=== PATIENT | female | born 1935 | race Caucasian/White ===

== ENCOUNTER 2018-01-05 01:29 | Outpatient (CLI) | payer MEDICARE ==
[~2018-01-05 01:29] MED LIST: ZOLP10TA5 PO
== END 2018-01-05 23:59 | disposition home or self-care (01) ==
LOC: DIABETIC 01:29
PROVIDERS: ATTEND Physician Assistant
DX: Z71.3 Dietary counseling and surveillance (principal); E58 Dietary calcium deficiency; M81.0 Age-related osteoporosis without current pathological fracture; L21.9 Seborrheic dermatitis, unspecified; M19.90 Unspecified osteoarthritis, unspecified site; E78.5 Hyperlipidemia, unspecified
CPT/HCPCS: 97802

== ENCOUNTER 2018-05-19 18:54 | Emergency (ER) | payer OTHER ==
[~2018-05-19] VITALS: Ht 170.2 cm; Wt 57.5 kg
[2018-05-19 19:13] VITALS: BP 147/70
== END 2018-05-19 20:39 | disposition left against medical advice (07) ==
LOC: ER 18:55
DX: M79.645 Pain in left finger(s) (principal); Z53.21 Procedure and treatment not carried out due to patient leaving prior to being seen by health care provider; Z88.5 Allergy status to narcotic agent; Z88.8 Allergy status to other drugs, medicaments and biological substances; Z79.899 Other long term (current) drug therapy

== ENCOUNTER 2022-12-11 23:20 | Emergency (ER) | payer MEDICARE, OTHER ==
[~2022-12-11] VITALS: Ht 170.2 cm; Wt 63.6 kg
[2022-12-12 00:31] LABS: BASOPHILS # (AUTO) 0.1 X10'3 (0-0.2); BASOPHILS % (AUTO) 1.2 % (0-1); EOSINOPHILS # (AUTO) 0.1 X10'3 (0-0.9); EOSINOPHILS % (AUTO) 1.6 % (0-6); HEMATOCRIT 35.9 % (35.0-45.0); HEMOGLOBIN 12.1 g/dl (12.0-16.0); LYMPHOCYTES # (AUTO) 1.2 X10'3 (1.1-4.8); LYMPHOCYTES % (AUTO) 21.3 % (21-51); MEAN CORPUSCULAR HEMOGLOBIN 31.5 PG (27.0-31.0); MEAN CORPUSCULAR HGB CONC 33.8 g/dL (33.0-36.5); MEAN CORPUSCULAR VOLUME 93.4 FL (78-98); MEAN PLATELET VOLUME 7.9 FL (7.4-10.4); MONOCYTES # (AUTO) 0.7 X10'3 (0-0.9); NEUTROPHILS # (AUTO) 3.5 X10'3 (1.8-7.7); NEUTROPHILS % (AUTO) 63.9 % (42-75); PLATELET COUNT 282 X10'3 (140-440); RED BLOOD COUNT 3.84 X10'6 (4.20-5.60); RED CELL DISTRIBUTION WIDTH 14.3 % (11.5-14.5); WHITE BLOOD COUNT 5.5 X10'3 (4.5-11.0)
[2022-12-12 00:43] LABS: ALANINE AMINOTRANSFERASE 21 U/L (12-78); ALBUMIN 3.3 G/DL (3.4-5.0); ALBUMIN/GLOBULIN RATIO 0.9 (1.1-1.5); ALKALINE PHOSPHATASE 136 IU/L (46-116); ANION GAP 7 (8-16); ASPARTATE AMINO TRANSFERASE 37 U/L (10-37); BILIRUBIN,TOTAL 0.4 MG/DL (0.1-1.0); BLOOD UREA NITROGEN 8 MG/DL (7-18); BUN/CREATININE RATIO 12.1 (10.0-20.0); CALCIUM 9.2 MG/DL (8.5-10.1); CHLORIDE 104 MMOL/L (99-107); CREATININE 0.66 MG/DL (0.40-0.90); GLUCOSE 109 MG/DL (70-104); POTASSIUM 3.4 MMOL/L (3.5-5.1); SODIUM 141 MMOL/L (135-145); TOTAL CARBON DIOXIDE 30.5 MMOL/L (24-32); eCRCL 61 ML/MIN; eGFR 85 ML/MIN
[2022-12-12 00:45] VITALS: TEMP 98.1
[2022-12-12 01:13] LABS: BILIRUBIN,URINE NEGATIVE (Neg); CLARITY,URINE CLEAR (Clear); COLOR,URINE YELLOW (Yellow); GLUCOSE, URINE NEGATIVE (Neg); KETONES,URINE 15 mg/dl (Neg); LEUKOCYTE ESTERASE ,URINE SMALL (Neg); NITRITES, URINE NEGATIVE (Neg); OCCULT BLOOD,URINE NEGATIVE (Neg); PROTEIN,URINE NEGATIVE (Neg); UROBILINOGEN,URINE 0.2 E.U/dL (0.2-1.0)
[2022-12-12 01:19] LABS: UA COLLECTION TYPE NON-SPECIFIED
[2022-12-12 01:20] LABS: MUCUS STRANDS MODERATE /LPF (Neg); SQUAMOUS EPITHELIAL CELL,UR MODERATE /LPF (FEW)
[2022-12-12 01:21] LABS: BACTERIA,URINE 1+ /HPF (Neg); RBC,URINE 0-2 /HPF (0-2)
[2022-12-12] MEDS ORDERED: CEPH-585 PO (01:30)
[2022-12-12 01:42] VITALS: BP 145/74; PULSE 72; RESP 14; O2SAT 97
== END 2022-12-12 01:47 | disposition home or self-care (01) ==
LOC: ER 23:20
DX: I83.893 Varicose veins of bilateral lower extremities with other complications (principal); Z88.6 Allergy status to analgesic agent; Z88.5 Allergy status to narcotic agent; Z79.899 Other long term (current) drug therapy
CPT/HCPCS: 36415; 80053; 81001; 85025; 86885; 86900; 86901; 87088; 93005; 99284

== ENCOUNTER 2022-12-17 14:08 | Emergency (ER) | payer MEDICARE, OTHER ==
[~2022-12-17] VITALS: Ht 170.2 cm; Wt 63.6 kg
[~2022-12-17 14:08] MED LIST changes: +CEPH-585 PO
[2022-12-17 14:51] VITALS: BP 108/64; PULSE 83; RESP 19; TEMP 97.6; O2SAT 97
--- NOTE | 2022-12-17 15:30 | NUR ---
I have reviewed and agree with all interventions, assessments performed and documented by SUNIL Langston.
[2022-12-17] MEDS ORDERED: CYCL-1 PO (15:35)
[2022-12-17] MEDS ORDERED: PRED20TA PO (15:35)
== END 2022-12-17 15:54 | disposition home or self-care (01) ==
LOC: ER 14:09
DX: M54.16 Radiculopathy, lumbar region (principal)
CPT/HCPCS: 73502; 99284

== ENCOUNTER 2023-01-17 04:16 | Emergency (ER) | payer MEDICARE ==
[~2023-01-17] VITALS: Ht 170.2 cm; Wt 61.3 kg
[~2023-01-17 04:16] MED LIST changes: +CYCL-1 PO; +PRED20TA PO
[2023-01-17 04:49] LABS: BILIRUBIN,URINE NEGATIVE (Neg); CLARITY,URINE CLOUDY (Clear); COLOR,URINE YELLOW (Yellow); GLUCOSE, URINE NEGATIVE (Neg); KETONES,URINE NEGATIVE (Neg); LEUKOCYTE ESTERASE ,URINE SMALL (Neg); NITRITES, URINE NEGATIVE (Neg); OCCULT BLOOD,URINE MODERATE (Neg); PH,URINE 7.5 (4.8-8.0); PROTEIN,URINE NEGATIVE (Neg); UROBILINOGEN,URINE 0.2 E.U/dL (0.2-1.0)
[2023-01-17 04:53] LABS: UA COLLECTION TYPE CLN CATCH MIDSTREAM
[2023-01-17 04:54] LABS: SQUAMOUS EPITHELIAL CELL,UR MODERATE /LPF (FEW)
[2023-01-17 04:56] LABS: BACTERIA,URINE 3+ /HPF (Neg)
[2023-01-17 04:58] LABS: AMORPHOUS PHOSPHATES 3+
[2023-01-17 05:02] LABS: BASOPHILS # (AUTO) 0.1 X10'3 (0-0.2); BASOPHILS % (AUTO) 1.1 % (0-1); EOSINOPHILS # (AUTO) 0.2 X10'3 (0-0.9); EOSINOPHILS % (AUTO) 2.9 % (0-6); HEMATOCRIT 39.6 % (35.0-45.0); HEMOGLOBIN 13.1 g/dl (12.0-16.0); LYMPHOCYTES # (AUTO) 1.9 X10'3 (1.1-4.8); LYMPHOCYTES % (AUTO) 32.7 % (21-51); MEAN CORPUSCULAR HEMOGLOBIN 30.6 PG (27.0-31.0); MEAN CORPUSCULAR VOLUME 92.7 FL (78-98); MONOCYTES # (AUTO) 0.8 X10'3 (0-0.9); NEUTROPHILS # (AUTO) 2.8 X10'3 (1.8-7.7); NEUTROPHILS % (AUTO) 49.3 % (42-75); PLATELET COUNT 332 X10'3 (140-440); RED BLOOD COUNT 4.28 X10'6 (4.20-5.60); RED CELL DISTRIBUTION WIDTH 14.2 % (11.5-14.5); WHITE BLOOD COUNT 5.7 X10'3 (4.5-11.0)
[2023-01-17 05:04] LABS: ALANINE AMINOTRANSFERASE 16 U/L (12-78); ALBUMIN 3.9 G/DL (3.4-5.0); ALBUMIN/GLOBULIN RATIO 1.1 (1.1-1.5); ALKALINE PHOSPHATASE 176 IU/L (46-116); ANION GAP 6 (8-16); ASPARTATE AMINO TRANSFERASE 22 U/L (10-37); BILIRUBIN,TOTAL 0.5 MG/DL (0.1-1.0); BLOOD UREA NITROGEN 10 MG/DL (7-18); BUN/CREATININE RATIO 14.9 (10.0-20.0); CALCIUM 9.3 MG/DL (8.5-10.1); CHLORIDE 106 MMOL/L (99-107); CREATININE 0.67 MG/DL (0.40-0.90); GLUCOSE 99 MG/DL (70-104); LIPASE 33 U/L (16-77); POTASSIUM 3.8 MMOL/L (3.5-5.1); SODIUM 141 MMOL/L (135-145); TOTAL CARBON DIOXIDE 29.4 MMOL/L (24-32); TOTAL PROTEIN 7.6 G/DL (6.4-8.2); eCRCL 59 ML/MIN; eGFR 84 ML/MIN
--- NOTE | 2023-01-17 06:43 | NUR ---
[id number] recieved reort from [facility] assuming care of pt
--- NOTE | 2023-01-17 08:55 | NUR ---
pt still in toilet. Checked on her. She reports she is fine and doesn't need help at this time.
--- NOTE | 2023-01-17 09:05 | NUR ---
0840 pt ambulated to BR using her FWW slow steady gait DC orders arrived pt aware. 0900 pt remains in BR attempting to have BM DC pw ready family member at bedside aware pt dc when out of BR
[2023-01-17 09:21] VITALS: BP 131/75; PULSE 69; RESP 16; TEMP 97.9; O2SAT 96
== END 2023-01-17 09:18 | disposition home or self-care (01) ==
LOC: ER 04:17
DX: K59.00 Constipation, unspecified (principal); K92.1 Melena; Z88.6 Allergy status to analgesic agent; Z88.5 Allergy status to narcotic agent
CPT/HCPCS: 36415; 74176; 80053; 81001; 83690; 84145; 85025; 87088; 99285; J3490

== ENCOUNTER 2023-01-18 07:48 | Emergency (ER) | payer MEDICARE ==
[~2023-01-18] VITALS: Ht 170.2 cm; Wt 61.0 kg
[~2023-01-18 07:48] MED LIST changes: -PRED20TA PO
[2023-01-18 07:55] VITALS: TEMP 98.2
[2023-01-18 09:40] VITALS: BP 148/73; PULSE 70; RESP 16; O2SAT 98
== END 2023-01-18 09:43 | disposition home or self-care (01) ==
LOC: ER 07:48
DX: K62.3 Rectal prolapse (principal); K59.00 Constipation, unspecified; Z88.6 Allergy status to analgesic agent; Z79.899 Other long term (current) drug therapy; Z88.5 Allergy status to narcotic agent
CPT/HCPCS: 99281

== ENCOUNTER 2023-01-22 07:32 | Emergency (ER) | payer MEDICARE ==
[~2023-01-22] VITALS: Ht 170.2 cm; Wt 61.6 kg
[2023-01-22 08:08] VITALS: BP 133/71; PULSE 69; RESP 16; TEMP 98.6; O2SAT 96
[2023-01-22] MEDS ORDERED: naproxen 500mg tablet PO ONE (10:25)
--- NOTE | 2023-01-22 10:30 | NUR ---
Patient refused to be on the wheelchair upon discharge. She preferred to walk with her walker. I asked an EMT student to assist the patient upon the discharge. Naproxen given for pain
== END 2023-01-22 10:42 | disposition home or self-care (01) ==
LOC: ER 07:33
DX: K62.3 Rectal prolapse (principal); Z88.6 Allergy status to analgesic agent
CPT/HCPCS: 99284

== ENCOUNTER 2023-01-29 23:07 | Emergency (ER) | payer MEDICARE ==
[~2023-01-29] VITALS: Ht 170.2 cm; Wt 59.6 kg
[2023-01-30] MEDS ORDERED: gabapentin 400mg capsule PO ONE (01:40)
[2023-01-30 01:57] LABS: BASOPHILS # (AUTO) 0.1 X10'3 (0-0.2); EOSINOPHILS # (AUTO) 0.1 X10'3 (0-0.9); HEMATOCRIT 36.1 % (35.0-45.0); HEMOGLOBIN 11.9 g/dl (12.0-16.0); LYMPHOCYTES # (AUTO) 1.6 X10'3 (1.1-4.8); LYMPHOCYTES % (AUTO) 25.5 % (21-51); MEAN CORPUSCULAR HEMOGLOBIN 30.7 PG (27.0-31.0); MEAN CORPUSCULAR VOLUME 93.1 FL (78-98); MEAN PLATELET VOLUME 7.6 FL (7.4-10.4); MONOCYTES # (AUTO) 0.9 X10'3 (0-0.9); MONOCYTES % (AUTO) 13.7 % (2-12); NEUTROPHILS # (AUTO) 3.7 X10'3 (1.8-7.7); NEUTROPHILS % (AUTO) 57.8 % (42-75); PLATELET COUNT 292 X10'3 (140-440); RED BLOOD COUNT 3.88 X10'6 (4.20-5.60); RED CELL DISTRIBUTION WIDTH 14.4 % (11.5-14.5); WHITE BLOOD COUNT 6.4 X10'3 (4.5-11.0)
[2023-01-30 02:26] LABS: ALANINE AMINOTRANSFERASE 17 U/L (12-78); ALBUMIN 3.3 G/DL (3.4-5.0); ALBUMIN/GLOBULIN RATIO 0.9 (1.1-1.5); ALKALINE PHOSPHATASE 122 IU/L (46-116); ANION GAP 6 (8-16); ASPARTATE AMINO TRANSFERASE 19 U/L (10-37); BILIRUBIN,TOTAL 0.4 MG/DL (0.1-1.0); BLOOD UREA NITROGEN 16 MG/DL (7-18); BUN/CREATININE RATIO 21.6 (10.0-20.0); CALCIUM 9.3 MG/DL (8.5-10.1); CHLORIDE 106 MMOL/L (99-107); CREATININE 0.74 MG/DL (0.40-0.90); GLUCOSE 113 MG/DL (70-104); POTASSIUM 3.7 MMOL/L (3.5-5.1); SODIUM 142 MMOL/L (135-145); TOTAL CARBON DIOXIDE 29.6 MMOL/L (24-32); TOTAL PROTEIN 6.9 G/DL (6.4-8.2); eCRCL 52 ML/MIN; eGFR 75 ML/MIN
[2023-01-30 02:27] LABS: C-REACTIVE PROTEIN < 0.05 MG/DL (0.0-0.5)
[2023-01-30] MEDS ORDERED: CEPH-585 PO (03:51)
[2023-01-30 04:07] VITALS: BP 148/67; PULSE 65; RESP 16; TEMP 98; O2SAT 99
== END 2023-01-30 04:09 | disposition home or self-care (01) ==
LOC: ER 23:08
DX: T81.40XD Infection following a procedure, unspecified, subsequent encounter (principal); G89.18 Other acute postprocedural pain; M79.605 Pain in left leg; Z88.6 Allergy status to analgesic agent; Z88.8 Allergy status to other drugs, medicaments and biological substances; Z79.2 Long term (current) use of antibiotics; Z79.899 Other long term (current) drug therapy
CPT/HCPCS: 36415; 73590; 80053; 85025; 85651; 86140; 93971; 99284

== ENCOUNTER → 2023-02-05 | Emergency (ER) | payer MEDICARE ==
[~2023-02-05] VITALS: Ht 170.2 cm; Wt 62.1 kg
[~2023-02-05] MED LIST changes: +GLYC-18 RC; +MAG1CAPS5 PO
[2023-02-05 14:36] VITALS: BP 146/69; PULSE 65; RESP 20; TEMP 97.5; O2SAT 97
== END | disposition home or self-care (01) ==
LOC: ER 14:24
DX: K59.00 Constipation, unspecified (principal); Z88.1 Allergy status to other antibiotic agents; Z88.8 Allergy status to other drugs, medicaments and biological substances
CPT/HCPCS: 99282

== ENCOUNTER 2024-11-09 02:42 | Emergency (ER) | payer MEDICARE, OTHER ==
[~2024-11-09] VITALS: Ht 170.2 cm; Wt 49.0 kg
[~2024-11-09 02:42] MED LIST changes: -CEPH-585 PO; +GLYC-147 RC; -GLYC-18 RC; +LACT10SO67 PO; +LUBI8CAP5 PO; +ONDA-243 PO
[2024-11-09 02:49] VITALS: BP 142/80; PULSE 83; O2SAT 95
--- NOTE | 2024-11-09 02:53 | Physician Documentation ---
History of Present Illness ~ General Stated Complaint: PAIN Time Seen by MD: 02:50 Primary Medical Doctor: Dr Stephens History of Present Illness Initial Comments Patient presents to the emergency room after pulling the fire alarm at her living facility because she wanted to get her pain medication early. She is giving her pain medication as EMS arrived to bring her to the emergency room. She has no medical complaints. Medication Reconciliation Allergies: Coded Allergies: No Known Allergies (Unverified , 08/24/24) Scheduled Cyclobenzaprine* (Cyclobenzaprine*), 1 TAB PO TID Lubiprostone (Lubiprostone), 8 MCG PO BID, (Reported) Mag Citrate/Potassium Citrate (K-mg Citrate 99-70 mg Capsule), 1 BOTTLE PO ONCE Scheduled PRN Glycerin (Glycerin), 1 EACH RC PRN PRN for constipation Lactulose (Constulose), 15 ML PO DAILY PRN for CONSTIPATION ONDANSETRON ODT 4mg tablet (Ondansetron Odt), 1 TAB PO Q6H PRN PRN for nausea/vomiting Zolpidem Tartrate* (Ambien*), 5 MG PO HSP PRN for sleep, (Reported) Past Medical History Past Medical History: Constipation, Osteoporosis Past Surgical History: other Other Past Surgical History: Vascular surgery Patient History: Patient reports no known family medical history. Alcohol Use: None Drug Use: none Lives with: Family Lives In: Home Occupation: retired Review of Systems ROS All review of systems negative except as per HPI Physical Exam Physical Exam Physical Exam General: Patient is awake, alert, in no acute distress. Comfortable appearing Head: Normocephalic and atraumatic. Eyes: Conjunctival normal. EOMI. PERRL. ENT: Mucous membranes moist. Neck: Supple, trachea is midline. Chest: Clear to auscultation bilaterally without rales, rhonchi, or wheezes. There is no accessory muscle use or retractions. Cardiac: RRR without murmurs, gallops, or rubs. Abd: Soft, nondistended, nontender, with normoactive bowel sounds. No guarding, rebound, or rigidity. Neuro: Cranial nerves II-XII grossly intact. No focal neuro deficits. Medical Decision Making Findings Patient presents to the emergency room as she is unhappy with her living condi tions. I explained to her this is not a medical emergency. She needs to work with her living facility friends and family that has social media sr strategy manager to discuss her living situation. Departure Disposition: HOME / SELF CARE / HOMELESS Impression: Primary Impression: General medical exam Condition: Stable Discharge Instructions: General Discharge Instructions Additional Instructions: You need to speak with your friends family and living facility regarding your displeasure and work it out with them regarding your residents. This is not a medical emergency Referrals: NO PRIMARY CARE PROVIDER (PCP) Signature Scribe Signature: No scribe Attestation: The note accurately reflects work and decisions made by me.Tim Schulz MD 11/09/24 02:53 TIM SCHULZ MD Nov 09, 2024 02:53
[2024-11-09 03:27] VITALS: RESP 14; TEMP 98.2
== END 2024-11-09 03:30 ==
LOC: ER 02:42
DX: Z00.00 Encounter for general adult medical examination without abnormal findings (principal)
CPT/HCPCS: 99283; J7030

== ENCOUNTER 2024-11-11 01:49 | Emergency (ER) | payer MEDICARE ==
[~2024-11-11] VITALS: Ht 170.2 cm; Wt 67.0 kg
--- NOTE | 2024-11-11 01:58 | Physician Documentation ---
History of Present Illness General Stated Complaint: AGITATION Time Seen by MD: 01:57 Primary Medical Doctor: Dr Stephens History of Present Illness Initial Comments The patient is an 89-year-old female brought in by EMS from [facility]. Evidently the patient was in [facility] for a right shoulder injury. The patient states she does not want to be at [facility] and requested to be transferred to our facility. The patient does not have any new complaints. She states her shoulder is currently not bothering her. But she is refusing to go back to [facility]. Medication Reconciliation Allergies: Coded Allergies: No Known Allergies (Unverified , 08/24/24) Scheduled Cyclobenzaprine* (Cyclobenzaprine*), 1 TAB PO TID Lubiprostone (Lubiprostone), 8 MCG PO BID, (Reported) Mag Citrate/Potassium Citrate (K-mg Citrate 99-70 mg Capsule), 1 BOTTLE PO ONCE Scheduled PRN Glycerin (Glycerin), 1 EACH RC PRN PRN for constipation Lactulose (Constulose), 15 ML PO DAILY PRN for CONSTIPATION ONDANSETRON ODT 4mg tablet (Ondansetron Odt), 1 TAB PO Q6H PRN PRN for nausea/vomiting Zolpidem Tartrate* (Ambien*), 5 MG PO HSP PRN for sleep, (Reported) Past Medical History Past Medical History: Constipation, Osteoporosis Past Surgical History: other Other Past Surgical History: Vascular surgery Smoking: Non-Smoker Alcohol Use: None Drug Use: none Lives with: Family Lives In: Home Occupation: retired Review of Systems All Other Systems at this time: Reviewed and Negative Physical Exam Physical Exam Physical Exam VITALS: Reviewed and as above. GENERAL: Alert, no apparent distress. HEENT: Normocephalic, atraumatic, PERRL, EOMI, dry mucosa, no erythema RESPIRATORY: Lungs clear, normal breath sounds, no respiratory distress. CHEST: No accessory muscle use, no retractions CV: Regular rate, rhythm, no edema, no murmur, No: JVD GI: Soft, non-tender, bowels sounds present, no rebound, guarding, or rigidity BACK: No CVA tenderness, or swelling MUSCULOSKELETAL: No deformities, no edema SKIN: Warm and dry, no rash NEURO: Oriented x4, No motor or sensory deficit PSYCH: Normal mood and affect, no agitation Progress Results/Orders Results/Orders Vital Signs 11/11/24 11/11/24 11/11/24 01:54 01:59 04:46 Temp 98.2 98.2 98.2 Pulse 84 89 82 Resp 12 14 16 B/P (MAP) 142/62 132/82 (99) 130/80 Pulse Ox 95 96 96 Medical Decision Making Findings The patient is a an 89-year-old female who was a resident at [facility] and has become agitated and called the ambulance because she no longer wanted to stay at [facility]. The patient was seen here in the emergency department she had no acute medical complaints. The patient had a benign exam she was otherwise well-appearing in no distress vital signs were reviewed lungs were clear the patient's pulse oximetry was interpreted as adequate and normal. The patient's son was contacted who was agreed to pick the patient up and the patient will be discharged to the son's care. Departure Disposition: 01 HOME / SELF CARE / HOMELESS Impression: Primary Impression: General medical exam Discharge Instructions: General Discharge Instructions Referrals: NO PRIMARY CARE PROVIDER (PCP) Signature Scribe Signature: no scribe Attestation: The note accurately reflects work and decisions made by me.Jonh De Paz MD 11/11/24 05:23 JONH DE PAZ MD Nov 11, 2024 01:58
[2024-11-11 04:46] VITALS: BP 130/80; PULSE 82; RESP 16; TEMP 98.2; O2SAT 96
== END 2024-11-11 04:18 | disposition home or self-care (01) ==
LOC: ER 01:50
DX: Z00.00 Encounter for general adult medical examination without abnormal findings (principal); Z79.899 Other long term (current) drug therapy
CPT/HCPCS: 99283